=== PATIENT | female | born 1975 | race Caucasian/White ===

== ENCOUNTER 2016-12-20 18:49 | Emergency (ER) | payer MEDICAID ==
[~2016-12-20] VITALS: Ht 149.9 cm; Wt 86.2 kg
[~2016-12-20 18:49] MED LIST: MOTRIN800 MG PO; NORCO 325 MG-7.1 TAB PO
[2016-12-20 19:01] VITALS: BP 128/82
[2016-12-20] MEDS ORDERED: HUMALOG100 UNIT/1 SQ (19:04)
[2016-12-20] MEDS ORDERED: LANTUS100 U/ML SC (19:04)
--- NOTE | 2016-12-20 19:28 | NUR ---
TO ER BED 3
--- NOTE | 2016-12-20 19:49 | NUR ---
PT. STATES SHES 9 WEEKS AND STARTED BLEEDING AND CRAMPING YESTERDAY, LMP 10/19/16 DENIES N/V/D; SKIN IS PINK/WARM/DRY; AAOX4 WITH EVEN AND STEADY GAIT; LUNGS CLEAR BL; HR EVEN AND REGULAR; PT DENIES ANY FEVER, CP, SOB, OR COUGH AT THIS TIME; PATIENT STATES PAIN OF 6/10 AT THIS TIME; VSS; PATIENT POSITIONED FOR COMFORT; HOB ELEVATED; BEDRAILS UP X2; BED DOWN. ER MD MADE AWARE OF PT STATUS.
--- NOTE | 2016-12-20 19:50 | NUR ---
pt triaged on day shift and no urine sample obtained. pt was taken to ultrasound. will obtain urine sample once pt returns to the er.
--- NOTE | 2016-12-20 21:15 | NUR ---
Patient discharged with v/s stable. Written and verbal after care instructions given and explained. Patient verbalized understanding. Ambulatory with steady gait. All questions addressed prior to discharge. Advised to follow up with PMD.
[2016-12-20 21:16] VITALS: BP 128/82
== END 2016-12-20 21:16 | disposition home or self-care (01) ==
LOC: MED 18:49
DX: O20.9 Hemorrhage in early pregnancy, unspecified (principal); E11.9 Type 2 diabetes mellitus without complications; Z79.4 Long term (current) use of insulin; Z3A.09 9 weeks gestation of pregnancy
CPT/HCPCS: 36415; 76817; 80048; 81001; 84702; 85025; 86900; 86901; 87086; 99285; Q0092

== ENCOUNTER 2020-05-17 14:16 | Emergency (ER) | payer MEDICAID ==
[~2020-05-17] VITALS: Ht 149.9 cm; Wt 79.8 kg
[~2020-05-17 14:16] MED LIST changes: +INSU-1163 SQ; +LANTUS SC; -MOTRIN800 MG PO; -NORCO 325 MG-7.1 TAB PO
--- NOTE | 2020-05-17 14:18 | NUR ---
pt ambulated to bed 04 with steady gait.
--- NOTE | 2020-05-17 14:20 | NUR ---
dr porter at bedside evalauting pt.
[2020-05-17 14:21] VITALS: BP 136/87
--- NOTE | 2020-05-17 14:30 | NUR ---
FELL FROM 7 STAIRS X 2 WEEKS. PER PATIENT NO LOC. INJURED LLE. SWOLLEN NOTED. PT ABLE TO AMBULATE. PT AOX4. AFIBRILE , AMBULATORY WITH STEADY GAIT, LEFT LOWER LEG TENDERNESS NOTED UPON TOUCH. NO LIMITATION OF ROM . HX DM.
[2020-05-17] MEDS ORDERED: KETOROLAC 60 MG/2 ML VIAL IM ONE (14:35)
--- NOTE | 2020-05-17 14:44 | NUR ---
stefany at bedside .
--- NOTE | 2020-05-17 14:51 | NUR ---
Ledy claros in EDM - 05/17/20 at 1453 by MEDAD PT TO OR GAVE REPORT TO TRINI ABREU,PT AOX4 , AFIBRILE , AMBULATORY WITH STEADY GAIT , TRANSPORTED VIA [employer]. IVF 900ML LEFT TO OR AT 80ML/HR.CONSENT FOR EGD SIGNED BY PT.
--- NOTE | 2020-05-17 15:09 | NUR ---
XRAY AT BEDSIDE.
--- NOTE | 2020-05-17 15:42 | NUR ---
DR MCPHERSON AT BEDSIDE EVALUATING PT.
[2020-05-17 15:57] VITALS: BP 136/87
== END 2020-05-17 15:58 | disposition home or self-care (01) ==
LOC: MED 14:16
DX: M79.605 Pain in left leg (principal); E11.9 Type 2 diabetes mellitus without complications; Z79.4 Long term (current) use of insulin; Z79.899 Other long term (current) drug therapy
CPT/HCPCS: 73502; 73562; 73610; 93971; 96372; 99284; J1885; Q0092

== ENCOUNTER 2020-05-31 15:32 | Emergency (ER) | payer MEDICAID ==
[~2020-05-31] VITALS: Ht 149.9 cm; Wt 79.4 kg
[2020-05-31 15:49] VITALS: BP 142/103
--- NOTE | 2020-05-31 15:52 | NUR ---
ASSISTED PT TO WAIT IN THE LOBBY AT [facility] AREA DUE TO NO AVAILABLE [facility] ROOM AT THIS TIME. URINE CUP PROVIDED TO PT FOR URINE SAMPLE COLLECTION.
--- NOTE | 2020-05-31 16:13 | NUR ---
CALLED PT. PT IS NOT IN THE LOBBY, OUTSIDE OF THE ER, OR BATHROOMS IN THE LOBBY. WILL CALL PT 20MINS LATER.
--- NOTE | 2020-05-31 16:25 | NUR ---
CALLED PT. PT IS NOT IN THE LOBBY, OUTSIDE OF THE ER, OR BATHROOMS IN THE LOBBY. WILL CALL PT 20MINS LATER.
--- NOTE | 2020-05-31 16:56 | NUR ---
CALLED PT. PT IS NOT IN THE LOBBY, OUTSIDE OF THE ER, OR BATHROOMS IN THE LOBBY.
--- NOTE | 2020-05-31 16:56 | NUR ---
PATIENT LEFT WITHOUT BEING SEEN BY DR. CALLEJAS. NO FURTHER CARE PROVIDED FOR PATIENT.
== END 2020-05-31 16:56 | disposition left against medical advice (07) ==
LOC: MED 15:32
DX: R50.9 Fever, unspecified (principal); Z53.21 Procedure and treatment not carried out due to patient leaving prior to being seen by health care provider

== ENCOUNTER 2022-04-28 12:16 | Emergency (ER) | payer SELFPAY ==
[~2022-04-28] VITALS: Ht 149.9 cm; Wt 78.1 kg
[2022-04-28 12:34] VITALS: BP 191/116
--- NOTE | 2022-04-28 14:00 | NUR ---
WALKED IN C/O LEFT SIDED CP ONSET TODAY. DENIES FALL OR TRAUMA. NON RADIATING. VSS, NO HX. ELEVATED BP. AAOX4, AMBULATORY. ERMD AWARE OF BP
[2022-04-28 15:56] LABS: BASOPHILS % (AUTO) 0.3 % (0.0-2.0); EOSINOPHILS # (AUTO) 0.2 K/uL (0-0.4); EOSINOPHILS % (AUTO) 1.8 % (0.0-4.0); HEMATOCRIT 38.2 % (36-48); HEMOGLOBIN 12.4 g/dL (12.0-16.0); LYMPHOCYTES # (AUTO) 2.4 K/uL (2.5-16.5); LYMPHOCYTES % (AUTO) 26.3 % (20.5-51.1); MEAN CORPUSCULAR HEMOGLOBIN 24 pg (27-31); MEAN CORPUSCULAR HGB CONC 33 g/dL (33-37); MEAN CORPUSCULAR VOLUME 74.2 fL (80-94); MONOCYTES # (AUTO) 0.5 K/uL (0.8-1.0); MONOCYTES % (AUTO) 5.1 % (1.7-9.3); NEUTROPHILS % (AUTO) 66.5 % (42.2-75.2); PLATELET COUNT (AUTO) 439 K/uL (140-450); RED BLOOD CELL COUNT(AUTO) 5.14 MIL/uL (4.20-5.40); RED CELL DISTRIBUTION WIDTH 18.1 % (11.6-13.7)
[2022-04-28 16:07] LABS: ANION GAP 12.3 (8-16); CARBON DIOXIDE 28.7 mmol/L (21-32); CREATININE 0.6 mg/dL (0.6-1.3)
[2022-04-28 16:51] LABS: MAGNESIUM 1.4 mg/dL (1.8-2.4)
[2022-04-28 17:40] VITALS: BP 159/94
== END 2022-04-28 17:42 | disposition home or self-care (01) ==
LOC: MED 12:16
DX: R07.89 Other chest pain (principal); E11.9 Type 2 diabetes mellitus without complications; I10 Essential (primary) hypertension; F15.90 Other stimulant use, unspecified, uncomplicated; Z79.4 Long term (current) use of insulin
CPT/HCPCS: 36415; 71045; 80048; 81002; 81025; 83735; 84484; 85025; 93005; 99285

== ENCOUNTER 2022-10-07 17:08 | Emergency (ER) | payer MEDICAID ==
[~2022-10-07] VITALS: Ht 149.9 cm; Wt 77.1 kg
[2022-10-07 17:47] VITALS: BP 125/66
--- NOTE | 2022-10-07 17:51 | NUR ---
PATIENT REPORTS COUGH AND SHORTNESS OF BREATH X 1 WEEK. PATIENT STATES SHE HAS LOST HER VOICE AND SOB IS GETTING WORSE. PATIENT ALSO REPORTS LEFT EAR PAIN
[2022-10-07] MEDS ORDERED: AMOX-1230 PO (18:21)
--- NOTE | 2022-10-07 18:55 | NUR ---
Note harlan in EDM - 10/07/22 at 1900 by [id number] Patient discharged with v/s stable. Written and verbal after care instructions given and explained to parent/guardian. Parent/Guardian verbalized understanding. Ambulatorysteady gait. All questions addressed prior to discharge. Advised to follow up with PMD.
== END 2022-10-07 18:55 | disposition home or self-care (01) ==
LOC: MED 17:08
DX: J32.0 Chronic maxillary sinusitis (principal); Z20.822 Contact with and (suspected) exposure to COVID-19; J06.9 Acute upper respiratory infection, unspecified; E11.9 Type 2 diabetes mellitus without complications; I10 Essential (primary) hypertension; Z79.4 Long term (current) use of insulin; Z79.899 Other long term (current) drug therapy; Z98.890 Other specified postprocedural states
CPT/HCPCS: 71045; 99284

== ENCOUNTER 2024-08-09 16:29 | Emergency (ER) | payer MEDICAID ==
[~2024-08-09] VITALS: Ht 149.9 cm; Wt 74.8 kg
[~2024-08-09 16:29] MED LIST changes: +AMOX-1230 PO
[2024-08-09 16:36] VITALS: BP 173/106; PULSE 98; RESP 18; TEMP 97.2; O2SAT 97
== END 2024-08-09 21:12 | disposition left against medical advice (07) ==
LOC: MED 16:29
DX: R07.9 Chest pain, unspecified (principal); E11.9 Type 2 diabetes mellitus without complications; I10 Essential (primary) hypertension; Z53.21 Procedure and treatment not carried out due to patient leaving prior to being seen by health care provider
CPT/HCPCS: 93005